=== PATIENT | female | born 1940 | race Caucasian/White ===

== ENCOUNTER 2024-04-24 09:48 | Day surgery (SDC) | payer MEDICARE, OTHER, SELFPAY ==
[2024-04-24] VITALS (10 sets, daily range): BP systolic 120–165; BP diastolic 55–123; BMI 28.9
[2024-04-24] MEDS: NSS 222 ML IV (10:56)
--- NOTE | 2024-04-24 12:55 | ITS.CL.CATH ---
[employer] - Catheterization
Cardiac Catheterization
Procedure Report:
LEFT HEART CATHETERIZATION
Date of Procedure: April 24, 2024
Procedures performed:
1: Coronary angiography
2: Left ventricular hemodynamic assessment
Primary Care Physician: Dr. Tyrone Mcmillan
Primary Bottle House Cleaners Supervisor: Dr. Jacklyn Carrion
INDICATION: The patient is an 84-year-old woman with a history of nonobstructive coronary artery disease by cath in 2017, will left bundle branch block, hypertension, GERD, and distant history of tobacco use is referred for coronary angiography
after presenting with some intermittent chest tightness. Nuclear perfusion scan was abnormal suggesting possible prior infarct in the LAD territory.
ACCESS: The patient was prepped and draped in usual sterile fashion. A 5 Turkmen sheath was placed in the right radial artery using the Seldinger over the wire technique.
HEMODYNAMIC FINDINGS (mmHg):
LV(s/d,EDP): 173/13, 16
Ao(s/d,m): 173/82, 109
ANGIOGRAPHIC FINDINGS:
Single-plane Left Ventriculography in [place] Projection: Not done. Echo performed on February 15 showed abnormal septal motion consistent with a left bundle josé antonio block with a visually estimated ejection fraction of 50%.
Coronary Angiography:
Dominance: Right
Left Main: Normal
Left Anterior Descending: The left anterior descending artery is a medium caliber vessel that gives rise to a small first diagonal branch and larger second diagonal branch. The proximal and mid LAD have moderate calcification with at worst a 30 to
40% stenosis just after the septal takeoff. The remainder the arteries have mild nonobstructive luminal irregularities with normal distal flow.
Ramus intermedius: There is a large ramus intermedius present that is widely patent.
Left Circumflex: The left circumflex is a medium caliber vessel that gives rise to 2 major distal obtuse marginal branches that are tortuous but have otherwise normal flow. There is a small distal OM that is also widely patent with normal flow.
Right Coronary: The right coronary artery is a medium caliber dominant vessel that gives rise to a small caliber posterior descending artery and posterior left ventricular branch system. These vessels are widely patent with only mild luminal
irregularities.
Fluoroscopy Time (min): 3.9
Radiation Dose (mGy): 268
DAP (Gy.cm2): 17
Closure device: None. A TR band was applied for hemostasis at the right wrist.
Complications: None.
ASSESSMENT:
1: Mild nonobstructive coronary artery disease as described above.
2: Poorly controlled systemic hypertension.
CONCLUSIONS and RECOMMENDATIONS:
1: Medical therapy for nonobstructive coronary artery disease and hypertension. I will add amlodipine 2.5 mg daily for tighter blood pressure control.
2: Clinical follow-up as scheduled.
Conchita Palumbo M.D.
Copy to: Dr. Tyrone Mcmillan
== END 2024-04-24 15:30 | disposition home or self-care (01) ==
LOC: CATH 09:48
PROVIDERS: ATTENDING PHYSICIAN Internal Medicine Interventional Cardiology; FAMILY PHYSICIAN Family Medicine; OTHER PHYSICIAN Internal Medicine Cardiovascular Disease
DX: I25.10 Atherosclerotic heart disease of native coronary artery without angina pectoris (principal); I44.7 Left bundle-branch block, unspecified; I10 Essential (primary) hypertension; E78.5 Hyperlipidemia, unspecified; K21.9 Gastro-esophageal reflux disease without esophagitis; Z87.891 Personal history of nicotine dependence; Z79.82 Long term (current) use of aspirin
CPT/HCPCS: 93458; C1894